=== PATIENT | female | born 1955 | race Caucasian/White ===

== ENCOUNTER 2017-06-13 11:24 | Emergency (ER) | payer BC ==
[2017-06-13 11:36] VITALS: BP 125/69
--- NOTE | 2017-06-13 11:47 | UC ---
Knee Pain HPI - HPI Summary HPI Summary: Patient tripped over her odg, landing on her knees, mild abraision to the right , left knee is swollen around the posterior and lateral aspect of the patella, pain shoots down the leg, lower leg starting to swell and mild bruising under the knee - History of Current Complaint Chief Complaint: UCLowerExtremity Stated Complaint: LEFT KNEE INJURY Time Seen by Provider: 06/13/17 11:40 Hx Obtained From: Patient Hx Last Menstrual Period: n/a ?: No Onset/Duration: Sudden Onset, Lasting Hours Severity Initially: Severe Severity Currently: Severe Character: Throbbing, Spasmodic, Stiffness Aggravating Factor(s): Movement, Weight Bearing, Prolonged Standing, Stairs Alleviating Factor(s): Nothing Associated Signs And Symptoms: Positive: Swelling, Bruising - Allergies/Home Medications Allergies/Adverse Reactions: Allergies Allergy/AdvReac Type Severity Reaction Status Date / Time No Known Allergies Allergy Verified 06/13/17 11:36 Home Medications: Home Medications Citalopram TAB* [CeleXA TAB*] 20 mg PO DAILY 06/13/17 [History Confirmed ] Fenofibrate Micronized [Fenofibrate] 43 mg PO DAILY 06/13/17 [History Confirmed 06/13/17] Lovastatin [Altoprev] 40 mg PO DAILY 06/13/17 [History Confirmed 06/13/17] Valsartan TAB* [Diovan TAB*] 80 mg PO DAILY 06/13/17 [History Confirmed 06/13/17 ] PMH/Surg Hx/FS Hx/Imm Hx Previously Healthy: Yes - Surgical History Surgical History: Yes Surgery Procedure, Year, and Place: hysterectomy. cyst removal leg - Family History Known Family History: Positive: Hypertension - Social History Alcohol Use: Rare Substance Use Type: None Smoking Status (MU): Never Smoked Tobacco - Immunization History Most Recent Influenza Vaccination: yes 2017 Review of Systems Constitutional: Negative Skin: Negative Eyes: Negative ENT: Negative Respiratory: Negative Cardiovascular: Negative Gastrointestinal: Negative Genitourinary: Negative Motor: Negative Neurovascular: Negative Musculoskeletal: Arthralgia, Decreased ROM, Myalgia Neurological: Negative Psychological: Negative Is Patient Immunocompromised?: No All Other Systems Reviewed And Are Negative: Yes Physical Exam Triage Information Reviewed: Yes Appearance: Well-Appearing, Well-Nourished, Pain Distress Vital Signs: Initial Vital Signs Temp 98.2 F 06/13/17 11:32 Pulse 64 06/13/17 11:32 Resp 16 06/13/17 11:32 BP 125/69 06/13/17 11:32 Pulse Ox 98 06/13/17 11:32 Vital Signs Reviewed: Yes Eye Exam: Normal ENT Exam: Normal Dental Exam: Normal Neck exam: Normal Respiratory Exam: Normal Respiratory: Positive: Chest non-tender, Lungs clear, Normal breath sounds Cardiovascular Exam: Normal Cardiovascular: Positive: RRR, No Murmur, Pulses Normal Abdominal Exam: Normal Abdomen Description: Positive: Nontender, No Organomegaly, Soft Musculoskeletal: Positive: Strength Limited @ - able to bear weight with significant limp, ROM Limited @ - in left knee, Edema @ - left knee and lower leg Neurological Exam: Normal Psychological Exam: Normal Skin Exam: Normal Knee Pain Course/Dx - Course Course Of Treatment: hx obtained, exam performed ,meds reviewed, xray obtained, negative for fracture. yael applied, educated on RICE and when to follow up if needed. - Differential Dx/Diagnosis Differential Diagnosis/HQI/PQRI: Contusion, Fracture (Closed), Sprain, Strain Provider Diagnoses: left knee contusion Discharge - Discharge Plan Condition: Stable Disposition: HOME Patient Education Materials: Contusion in Adults (ED) Referrals: Jossue Trujillo MD [Medical Doctor] - Additional Instructions: 1. rest, ice, compress and elevate 2. Ibuprofen and ice for the swelling 3. COntinue to use the yael wrap for compression 4. If not improving in the next few days follow up with Dr Trujillo.
--- NOTE | 2017-06-13 12:06 | RAD ---
HISTORY: Fall, left knee pain and swelling COMPARISONS: None VIEWS: 4, Frontal, lateral, axial, and oblique views left knee FINDINGS: BONE DENSITY: Normal. BONES: There is no displaced fracture. JOINTS: There is no arthropathy. There is no suprapatellar joint effusion or lipohemarthrosis. ALIGNMENT: There is no dislocation. SOFT TISSUES: Unremarkable. OTHER FINDINGS: None. IMPRESSION: NO ACUTE OSSEOUS INJURY. IF SYMPTOMS PERSIST, RECOMMEND REPEAT IMAGING.
== END 2017-06-13 12:23 | disposition home or self-care (01) ==
LOC: UCCORT 11:24
DX: S80.02XA Contusion of left knee, initial encounter (principal); W01.0XXA Fall on same level from slipping, tripping and stumbling without subsequent striking against object, initial encounter; Y93.K1 Activity, walking an animal
CPT/HCPCS: 99202; G0463

== ENCOUNTER 2018-01-02 12:27 | Emergency (ER) | payer BC ==
[2018-01-02 12:48] VITALS: BP 136/76
--- NOTE | 2018-01-02 13:05 | UC ---
UC General HPI - HPI Summary HPI Summary: BECAME ILL 2 WEEKS AGO WITH ITCHY EARS, SORE THROAT AND COUGH. COUGH AND CHEST CONGESTION WITH GREEN SPUTUM IS WORSENING. + WHEEZING. HAS A HX OF ASTHMA. 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 Negative: Chest Pain, Fever <Nayely Quevedo - Last Filed: 01/02/18 13:08> <Fauzia Bull - Last Filed: 01/02/18 13:24> - History of Current Complaint Chief Complaint: UCGeneralIllness Stated Complaint: URI SYMPTOMS Time Seen by Provider: 01/02/18 12:58 - Allergy/Home Medications Allergies/Adverse Reactions: Allergies Allergy/AdvReac Type Severity Reaction Status Date / Time No Known Allergies Allergy Verified 01/02/18 12:49 PMH/Surg Hx/FS Hx/Imm Hx Endocrine History: Dyslipidemia Cardiovascular History: Hypertension Respiratory History: Asthma Psychological History: Anxiety - Surgical History Surgical History: Yes Surgery Procedure, Year, and Place: tonsils, hysterectomy. cyst removal leg - Family History Known Family History: Positive: Hypertension - Social History Occupation: Employed Full-time Lives: With Family Alcohol Use: Rare Substance Use Type: None Smoking Status (MU): Former Smoker - Immunization History Most Recent Influenza Vaccination: yes 2017 Vaccination Up to Date: Yes <Nayely Quevedo - Last Filed: 01/02/18 13:08> Review of Systems Constitutional: Negative Skin: Negative Eyes: Negative ENT: Sore Throat Respiratory: Cough Cardiovascular: Negative Gastrointestinal: Negative Genitourinary: Negative Motor: Negative Neurovascular: Negative Musculoskeletal: Negative Neurological: Negative Psychological: Negative Is Patient Immunocompromised?: No All Other Systems Reviewed And Are Negative: Yes <Nayely Quevedo - Last Filed: 01/02/18 13:08> Physical Exam Triage Information Reviewed: Yes Appearance: Well-Appearing Vital Signs: Initial Vital Signs Temp 98.0 F 01/02/18 12:43 Pulse 58 01/02/18 12:43 Resp 16 01/02/18 12:43 BP 136/76 01/02/18 12:43 Pulse Ox 98 01/02/18 12:43 Vital Signs Reviewed: Yes Eyes: Positive: Conjunctiva Clear ENT: Positive: Pharyngeal erythema, TMs normal. Negative: Nasal congestion, Nasal drainage Neck: Positive: Supple, Nontender, No Lymphadenopathy Respiratory: Positive: Lungs clear, No respiratory distress, Decreased breath sounds, Other: - cough is congested Cardiovascular: Positive: RRR, No Murmur Abdomen Description: Positive: Nontender, No Organomegaly, Soft Bowel Sounds: Positive: Present Musculoskeletal: Positive: ROM Intact Neurological: Positive: Alert Psychological: Positive: Age Appropriate Behavior Skin Exam: Normal <Nayely Quevedo - Last Filed: 01/02/18 13:08> Vital Signs: Initial Vital Signs Temp 98.0 F 01/02/18 12:43 Pulse 58 01/02/18 12:43 Resp 16 01/02/18 12:43 BP 136/76 01/02/18 12:43 Pulse Ox 98 01/02/18 12:43 <Fauzia Bull - Last Filed: 01/02/18 13:24> Course/Dx - Course Course Of Treatment: non toxic, not hypoxic. ill x 2 weeks with worsening thus will cover for the asthma flare plus presumptive bacterial infection. - Differential Dx - Multi-Symptom Provider Diagnoses: asthma falre, sore throat <Nayely Quevedo - Last Filed: 01/02/18 13:08> Discharge - Sign-Out/Discharge Documenting (check all that apply): Discharge/Admit/Transfer - Billing Disposition and Condition Condition: STABLE Disposition: HOME <Nayely Quevedo - Last Filed: 01/02/18 13:08> - Billing Disposition and Condition Condition: STABLE Disposition: HOME <Fauzia Bull - Last Filed: 01/02/18 13:24> - Discharge Plan Condition: Stable Disposition: HOME Prescriptions: DOXYcycline CAP(*) [DOXYcycline 100MG CAP(*)] 100 mg PO BID #14 cap predniSONE TAB* [Deltasone TAB*] 40 mg PO DAILY 5 Days #10 tab Patient Education Materials: Asthma (DC) Referrals: Faviola Martinez NP [Primary Care Provider] - 5 Days Additional Instructions: USE YOUR XOPENEX INHALER EVERY 6 HOURS Attestation Statement User Type: Provider - I was available for consult. This patient was seen by the [facility]. The patient was not presented to, seen by, or examined by me. -Yamilka <Fauzia Bull - Last Filed: 01/02/18 13:24>
== END 2018-01-02 13:15 | disposition home or self-care (01) ==
LOC: UCCORT 12:27
DX: J45.909 Unspecified asthma, uncomplicated (principal); J02.9 Acute pharyngitis, unspecified; I10 Essential (primary) hypertension; Z87.891 Personal history of nicotine dependence
CPT/HCPCS: 99212; G0463

== ENCOUNTER 2019-01-03 15:22 | Emergency (ER) | payer BC ==
[2019-01-03 16:05] VITALS: BP 160/74
--- NOTE | 2019-01-03 16:12 | UC ---
General HPI - HPI Summary HPI Summary: pt is c/o a 2 week hx of "pain deep inside" the L eye and L ear plus on the surface of her skin in the L side of her face. it feels like pin pricks to burning. the eye is episodic but the ear and face are constant. she states that it feels like the time she had shingle on her R side of face. she had a rash with that. it improves with advil. she denies headache, visual changes, facial droop, difficulty with speech and balance. she has no current or recent acute illness. no hx of tick bite. 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 - Allergy/Home Medications Allergies/Adverse Reactions: Allergies Allergy/AdvReac Type Severity Reaction Status Date / Time No Known Allergies Allergy Verified 01/03/19 15:48 Home Medications: Home Medications Ibuprofen TAB* [Advil TAB*] 600 mg PO Q6H PRN 01/03/19 [History Confirmed ] Losartan TAB* [Cozaar TAB*] 25 mg PO DAILY 01/03/19 [History Confirmed 01/03/19] Metoprolol Tartrate TAB* [Lopressor TAB*] 25 mg PO DAILY 01/03/19 [History Confirmed 01/03/19] PMH/Surg Hx/FS Hx/Imm Hx Endocrine History: Dyslipidemia Cardiovascular History: Hypertension, Other - bigeminy Psychological History: Anxiety, Depression - Surgical History Surgical History: Yes Surgery Procedure, Year, and Place: tonsils, hysterectomy. cyst removal leg - Family History Known Family History: Positive: Hypertension - Social History Alcohol Use: Rare Substance Use Type: None Smoking Status (MU): Former Smoker When Did the Patient Quit Smoking/Using Tobacco: 15 YEARS AGO - Immunization History Most Recent Influenza Vaccination: yes 2017 Vaccination Up to Date: Yes Review of Systems All Other Systems Reviewed And Are Negative: Yes Constitutional: Negative: Fever Skin: Negative: Rash Eyes: Negative: Blurred Vision, Diplopia, Drainage, Eye Redness, Photophobia ENT: Positive: Ear Ache - L. Negative: Dental Pain, Sore Throat, Sinus Congestion, Sinus Pain/Tenderness Motor: Negative: Weakness Neurological: Negative: Headache, Weakness, Paresthesia, Numbness Physical Exam Triage Information Reviewed: Yes Appearance: Well-Appearing Vital Signs: Initial Vital Signs Temp 97.6 F 01/03/19 15:54 Pulse 50 01/03/19 15:54 Resp 16 01/03/19 15:54 BP 160/74 01/03/19 15:54 Pulse Ox 97 01/03/19 15:54 Vital Signs Reviewed: Yes Eyes: Positive: Other: - PERRL, EOMI, AC's clear. Conjunctiva are clear. ENT: Positive: Pharynx normal, TMs normal - and canals are clear, Other - No auricular adenopathy or mastoid tenderness.. Negative: Nasal congestion, Nasal drainage Dental: Negative: Abscess @ Neck: Positive: Supple, Nontender, No Lymphadenopathy Respiratory: Positive: Lungs clear, Normal breath sounds Cardiovascular: Positive: RRR, No Murmur Abdomen Description: Positive: Nontender, No Organomegaly, Soft Bowel Sounds: Positive: Present Musculoskeletal: Positive: ROM Intact Neurological: Positive: Muscle Tone Normal, Other: - A&Ox3. pt notes L cheek bone area felt numb to light , otherwise the CN 2-12 are intact. negative rhomberg and pronator drift. heel to toe walks with ease. steady gait. 5/5 strength, 2+ reflexes and sensation intact x4. Psychological: Positive: Age Appropriate Behavior Skin Exam: Normal Skin: Positive: Other - No facial rash.. Negative: Rashes Course/Dx - Course Course Of Treatment: case reviewed with Dr Anaya. He was not asked to see the pt. - Differential Dx - Multi-Symptom Differential Diagnoses: Other - symptoms stable x 2 weeks. no rash of shingles. pattern most c/w trigeminal neuralgia. carbamazepine offered but pt declined. pt encouraged to f/u pcp and neuro guerita. she agrees to seek tx immediately for any rash and go to the ER for any changes or worsening. - Diagnoses Provider Diagnosis: Left facial pain Discharge - Sign-Out/Discharge Documenting (check all that apply): Patient Departure All imaging exams completed and their final reports reviewed: No - Discharge Plan Condition: Stable Disposition: HOME Patient Education Materials: Trigeminal Neuralgia (ED) Referrals: Mellissa Blue PA [Primary Care Provider] - As Soon As Possible Delmar Llanos MD [Medical Doctor] - As Soon As Possible Additional Instructions: GO TO THE ER FOR ANY CHANGES OR WORSENING. - Billing Disposition and Condition Condition: STABLE Disposition: Home - Attestation Statements Provider Attestation: Per institutional requirements, I have reviewed the chart. I did not personally evaluate, interact with , or disposition this patient.
== END 2019-01-03 17:03 | disposition home or self-care (01) ==
LOC: UCCORT 15:22
DX: R51 Headache (principal); H57.12 Ocular pain, left eye; H92.02 Otalgia, left ear; I10 Essential (primary) hypertension; Z79.899 Other long term (current) drug therapy; Z87.891 Personal history of nicotine dependence
CPT/HCPCS: 99211; G0463

== ENCOUNTER 2019-08-02 15:30 | Emergency (ER) | payer BC ==
[2019-08-02 15:48] VITALS: BP 165/71
--- NOTE | 2019-08-02 16:11 | UC ---
Respiratory Complaint HPI - HPI Summary HPI Summary: Pt presents with c/o 3 weeks with URI like symptoms that have now worsened and has now "settled in her chest". Pt states that she has productive cough, malaise, and body aches that have worsened over the last 3-4 days. 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 Onset/Duration: Gradual Onset, Lasting Weeks, Worse Since - onset Timing: Constant Severity Initially: Mild Severity Currently: Moderate Pain Intensity: 0 Character: Cough: Productive Aggravating Factors: Exertion, Deep Breaths, Recumbent Position Alleviating Factors: Nothing Associated Signs And Symptoms: Positive: Chills, URI, Nasal Congestion - Risk Factors Pulmonary Embolism Risk Factors: Negative Cardiac Risk Factors: Negative Pseudomonas Risk Factors: Negative Tuberculosis Risk Factors: Negative - Allergies/Home Medications Allergies/Adverse Reactions: Allergies Allergy/AdvReac Type Severity Reaction Status Date / Time No Known Allergies Allergy Verified 08/02/19 15:38 Home Medications: Home Medications Flecainide TAB* [Tambocor TAB*] 100 mg PO BID 08/02/19 [History Confirmed ] PMH/Surg Hx/FS Hx/Imm Hx Previously Healthy: Yes - Surgical History Surgical History: Yes Surgery Procedure, Year, and Place: tonsils, hysterectomy. cyst removal leg - Family History Known Family History: Positive: Hypertension - Social History Occupation: Employed Full-time Lives: With Family Alcohol Use: Rare Substance Use Type: None Smoking Status (MU): Former Smoker Have You Smoked in the Last Year: No When Did the Patient Quit Smoking/Using Tobacco: 15 YEARS AGO - Immunization History Most Recent Influenza Vaccination: yes 2017 Vaccination Up to Date: Yes Review of Systems All Other Systems Reviewed And Are Negative: Yes Constitutional: Positive: Chills, Fatigue Skin: Positive: Negative Eyes: Positive: Negative ENT: Positive: Sinus Congestion Respiratory: Positive: Cough Cardiovascular: Positive: Negative Gastrointestinal: Positive: Negative Genitourinary: Positive: Negative Motor: Positive: Negative Neurovascular: Positive: Negative Musculoskeletal: Positive: Myalgia Neurological: Positive: Negative Psychological: Positive: Negative Is Patient Immunocompromised?: No Physical Exam Triage Information Reviewed: Yes Appearance: Ill-Appearing Vital Signs: Initial Vital Signs Temp 97.7 F 08/02/19 15:41 Pulse 64 08/02/19 15:41 Resp 20 08/02/19 15:41 BP 165/71 08/02/19 15:41 Pulse Ox 95 08/02/19 15:41 Vital Signs Reviewed: Yes Eye Exam: Normal ENT: Positive: Nasal congestion Dental Exam: Normal Neck exam: Normal Respiratory: Positive: Decreased breath sounds Cardiovascular Exam: Normal Musculoskeletal Exam: Normal Neurological Exam: Normal Psychological Exam: Normal Skin Exam: Normal Respiratory Course/Dx - Differential Dx/Diagnosis Differential Diagnosis/HQI/PQRI: Bronchitis, Other - pneumonia Provider Diagnosis: Bronchitis Discharge ED - Sign-Out/Discharge Documenting (check all that apply): Patient Departure All imaging exams completed and their final reports reviewed: No Studies - Discharge Plan Condition: Stable Disposition: HOME Prescriptions: Amoxicillin PO (*) [Amoxicillin 500 MG CAP*] 500 mg PO Q12H #20 cap Benzonatate CAP* [Tessalon 100 MG CAP*] 100 mg PO Q8H PRN #30 cap PRN Reason: Cough predniSONE TAB* [Deltasone 10 MG TAB*] 30 mg PO DAILY #12 tab Patient Education Materials: Acute Bronchitis (ED) Referrals: Mellissa Blue PA [Primary Care Provider] - If Needed - Billing Disposition and Condition Condition: STABLE Disposition: Home
== END 2019-08-02 16:24 | disposition home or self-care (01) ==
LOC: UCCORT 15:30
DX: J40 Bronchitis, not specified as acute or chronic (principal); R53.81 Other malaise; Z87.891 Personal history of nicotine dependence
CPT/HCPCS: 99212; G0463